=== PATIENT | female | born 1985 | race Caucasian/White ===

== ENCOUNTER 2017-06-10 17:15 | Emergency (ER) | payer BC ==
[~2017-06-10] VITALS: Ht 149.9 cm; Wt 59.7 kg
[~2017-06-10 17:15] MED LIST: ENDOCET 5-3251 EACH PO; FEOSOL325 MG PO; KLONOPIN0.5 M1 PO; MOTRIN800 MG PO; NAPROSYN500 MG PO; NOHOMEMEDS; PROAIR HFA8.5 GM IH; PROVENTIL,2.5 MG/3 M IH; SKELAXIN800 MG PO; TYLENOL REGULA325 MG PO; Theragran-M,Centrum, PO; ~No Medications
[2017-06-10 18:48] LABS: BASOPHIL (%) 0.3 % (0-1); EOSINOPHIL (%) 1.4 % (0-5); EOSINOPHIL COUNT 0.1 K/uL (0-0.3); HEMATOCRIT 40.5 % (36.0-46.0); HEMOGLOBIN 13.8 G/DL (11.9-15.5); IMMATURE GRANULOCYTE (%) 0.2 % (0.0-0.7); LYMPHOCYTE COUNT 3.9 K/uL (1.0-2.8); MCH 29.9 PG (29.0-34.0); MCHC 34.1 G/DL (30.0-36.0); MCV 87.7 FL (83-99); MONOCYTE (%) 4.8 % (3-12); MONOCYTE COUNT 0.5 K/uL (0-0.8); NEUTROPHIL (%) 52.3 % (45-76); PLATELET COUNT 288 K/uL (156-360); RBC DIS.WIDTH-CV 12.5 % (11.8-14.6); RBC DIS.WIDTH-SD 40.2 % (39-53); RED BLOOD COUNT 4.62 M/uL (3.80-5.20); WHITE BLOOD COUNT 9.5 K/uL (4.1-10.2)
[2017-06-10 18:59] LABS: ALBUMIN 4.5 g/dL (3.2-4.8); CHLORIDE 107 mEq/L (99-109); POTASSIUM 3.5 mEq/L (3.7-5.4); SODIUM 142 mEq/L (136-147)
[2017-06-10 19:01] LABS: GLUCOSE 86 mg/dL (70-99)
[2017-06-10 19:02] LABS: TOTAL PROTEIN 7.4 g/dL (6.4-8.3)
[2017-06-10 19:03] LABS: TOTAL BILIRUBIN 0.3 mg/dL (0.0-1.0)
[2017-06-10 19:05] LABS: ALKALINE PHOSPHATASE 87 IU/L (3-129); CREATININE 0.7 mg/dL (0.6-1.3); GFR ESTIMATE (CALCULATED) > 59 mL/min/
[2017-06-10 19:06] LABS: UREA NITROGEN (BUN) 14 mg/dL (9-23)
[2017-06-10 19:08] LABS: ALT (GPT) 21 IU/L (3-49); AST (GOT) 21 IU/L (2-34)
[2017-06-10 19:51] LABS: APPEARANCE SL.HAZY ((CLEAR)); BILIRUBIN NEGATIVE; BLOOD NEGATIVE; COLOR YELLOW ((YELLOW)); GLUCOSE (STRIP) NEGATIVE; KETONES 5; LEUKOCYTES NEGATIVE; NITRITE NEGATIVE; PROTEIN (STRIP) NEGATIVE; SPECIFIC GRAVITY 1.026 (1.000-1.030); UROBILINOGEN 0.2 MG/DL (0.2-1.0)
[2017-06-10 20:05] LABS: BACTERIA NONE SEEN /HPF; EPITHELIAL CELLS RARE /HPF; MUCUS TRACE /LPF; UCUL ADDED? NO; WHITE BLOOD CELLS 0-5 /HPF (0-5)
[2017-06-10 20:55] VITALS: BP 128/92
[2017-06-13 13:57] LABS: SOURCE SWAB
== END 2017-06-10 21:18 | disposition home or self-care (01) ==
LOC: EME 17:15
PROVIDERS: Physician Assistant Medical
DX: D27.0 Benign neoplasm of right ovary (principal); J45.909 Unspecified asthma, uncomplicated; F41.9 Anxiety disorder, unspecified; Z87.442 Personal history of urinary calculi
CPT/HCPCS: 74177; 76856; 80053; 81003; 81025; 85025; 87491; 87591; 99281; 99284; J7040